=== PATIENT | female | born 1940 | race Caucasian/White ===

== ENCOUNTER 2018-07-16 12:04 | Emergency (ER) | payer OTHER ==
[~2018-07-16] VITALS: Ht 157.5 cm; Wt 62.6 kg
[2018-07-16] MEDS ORDERED: GLIPIZIDE XL10 MG (12:22)
[2018-07-16] MEDS ORDERED: METFORMIN HCL1000 MG (12:22)
== END 2018-07-16 14:32 | disposition home or self-care (01) ==
LOC: ER 12:04 → EDBD 12:09 → ER 14:32
DX: K57.30 Diverticulosis of large intestine without perforation or abscess without bleeding (principal); K58.8 Other irritable bowel syndrome; R10.32 Left lower quadrant pain

== ENCOUNTER 2018-10-06 14:20 | Emergency (ER) | payer OTHER ==
[~2018-10-06] VITALS: Ht 154.9 cm; Wt 62.6 kg
[~2018-10-06 14:20] MED LIST: GLIPIZIDE XL10 MG; METFORMIN HCL1000 MG
[2018-10-06] MEDS ORDERED: JANUVIA25 MG (14:31)
[2018-10-06] MEDS ORDERED: INTESTINEX680 M1 (14:32)
[2018-10-06] MEDS ORDERED: ZOCOR20 MG (14:32)
[2018-10-06] MEDS ORDERED: PROTONIX40 M1 (14:32)
[2018-10-06] MEDS ORDERED: VITAMIN D310000 UNIT (14:33)
[2018-10-06] MEDS ORDERED: VITAMIN B125000 MCG (14:33)
[2018-10-06] MEDS ORDERED: COZAAR50 MG (14:34)
== END 2018-10-06 21:47 | disposition home or self-care (01) ==
LOC: ER 14:20
DX: K52.89 Other specified noninfective gastroenteritis and colitis (principal); E86.0 Dehydration; K57.30 Diverticulosis of large intestine without perforation or abscess without bleeding

== ENCOUNTER 2020-06-27 09:34 | Emergency (ER) | payer OTHER ==
[~2020-06-27] VITALS: Ht 157.5 cm; Wt 62.6 kg
[~2020-06-27 09:34] MED LIST changes: +COZAAR50 MG; +INTESTINEX680 M1; +JANUVIA25 MG; +PROTONIX40 M1; +VITAMIN B125000 MCG; +VITAMIN D310000 UNIT; +ZOCOR20 MG
== END 2020-06-27 16:43 | disposition home or self-care (01) ==
LOC: ER 09:34
DX: K59.09 Other constipation (principal); K57.30 Diverticulosis of large intestine without perforation or abscess without bleeding; R10.84 Generalized abdominal pain